=== PATIENT | female | born 2000 | race Caucasian/White ===

== ENCOUNTER → 2024-02-01 | Outpatient (CLI) | payer OTHER ==
[~2024-02-01] MED LIST: CEPH500 PO; Pyridium100 MG PO
== END ==
LOC: LAB 14:12 → LAB SHORT 14:12
DX: R10.9 Unspecified abdominal pain (principal)
CPT/HCPCS: 87086

== ENCOUNTER → 2024-02-06 | Outpatient (CLI) | payer OTHER | END | disposition home or self-care (01) | LOC: LAB 19:00 → LAB SHORT 19:00 | DX: R10.9 Unspecified abdominal pain (principal) | CPT/HCPCS: 87086 ==

== ENCOUNTER → 2024-04-04 | Outpatient (CLI) | payer OTHER | LOC: LAB SHORT 12:30 → LAB EV 12:30 | DX: R30.0 Dysuria (principal) | CPT/HCPCS: 87077; 87086; 87186 ==

== ENCOUNTER → 2024-08-19 | Outpatient (CLI) | payer OTHER | END | disposition home or self-care (01) | LOC: LAB 17:29 → LAB SHORT 17:29 | PROVIDERS: Obstetrics & Gynecology | DX: Z01.419 Encounter for gynecological examination (general) (routine) without abnormal findings (principal) | CPT/HCPCS: G0123 ==

== ENCOUNTER → 2025-09-28 | Outpatient (CLI) | payer OTHER ==
[2025-09-28 20:11] LABS: Hematocrit 46.0 % (33.0-51.0); Hemoglobin 15.4 g/dL (11.5-16.0); Mean Corpuscular HGB Conc 33.5 g/dL (31.5-36.5); Mean Corpuscular Volume 86 fL (80-100); NRBC ABSOLUTE 0.00 K/mm3 (0.00-0.02); NRBC Auto 0.0 /100 WBC (0.0-0.2); Platelet Count 388 K/mm3 (150-400); RDW Coefficient Variation 12.6 % (11.7-14.2); RDW Standard Deviation 39.3 fL (35.1-46.3)
[2025-09-28 20:33] LABS: BASOPHILS ABSOLUTE MAN 0.00 K/mm3 (0.00-0.23); BASOPHILS PERCENT MAN 0 % (0-2); EOSINOPHILS ABSOLUTE MAN 0.19 K/mm3 (0.00-0.68); EOSINOPHILS PERCENT MAN 2 % (0-6); LYMPHOCYTES ABSOLUTE MAN 3.37 K/mm3 (0.84-5.20); LYMPHOCYTES PERCENT MAN 35 % (21-46); MONOCYTES ABSOLUTE MAN 0.38 K/mm3 (0.16-1.47); MONOCYTES PERCENT MAN 4 % (4-13); NEUTROPHILS ABSOLUTE MAN 5.69 K/mm3 (1.96-9.15); SEG NEUTROPHILS PERCENT MAN 59 % (41-73)
== END ==
LOC: LAB SHORT 18:05 → LAB 18:05
PROVIDERS: Nurse Practitioner
DX: K92.1 Melena (principal)
CPT/HCPCS: 85007; 85027